=== PATIENT | female | born 1995 | race Caucasian/White ===

== ENCOUNTER 2019-11-29 21:43 | Emergency (ER) | payer OTHER ==
[~2019-11-29] VITALS: Ht 175.3 cm; Wt 54.4 kg
[2019-11-29] MEDS ORDERED: [UNRECOGNIZED DRUG - OTHER] (21:56)
== END 2019-11-29 22:47 | disposition home or self-care (01) ==
LOC: ER 21:43
DX: F06.4 Anxiety disorder due to known physiological condition (principal)